=== PATIENT | male | born 1935 | race Caucasian/White ===

== ENCOUNTER 2020-11-22 12:56 | Outpatient (REF) | payer MEDICARE, SELFPAY ==
--- NOTE | ~2020-11-22 | XR_ITS ---
EXAMINATION: XR HAND, LEFT CLINICAL INFORMATION: Pain left thumb. COMPARISON: None TECHNIQUE: PA, lateral, and oblique views of the left hand. FINDINGS: There is no acute or healing fracture, dislocation, or destructive process. There are osteoarthritic changes first carpometacarpal joint with joint narrowing and mild subchondral sclerosis and osteophyte. No erosive changes. Borderline joint narrowing first, second, and fifth the IP joints. XR/XR hand LT min 3V IMPRESSION: 1. Osteoarthritic changes first carpometacarpal joint. 2. Borderline narrowing DIP joints. No erosive changes.
== END 2020-11-22 12:57 | disposition home or self-care (01) ==
LOC: HO.HMGCX 12:56
PROVIDERS: PCP Internal Medicine; Visit Provider Nurse Practitioner Family
DX: M79.646 Pain in unspecified finger(s) (principal)
CPT/HCPCS: 73130